=== PATIENT | male | born 1950 | race Caucasian/White ===

== ENCOUNTER 2024-03-25 20:55 | Inpatient (IN) | payer MEDICARE, OTHER ==
[~2024-03-25] VITALS: Ht 180.3 cm; Wt 87.1 kg
[2024-03-25 20:10] VITALS: BP 130/49; TEMP 98.2; O2SAT 94
[2024-03-25] MEDS ORDERED: ACET-3117 PO (21:53)
[2024-03-25] MEDS ORDERED: ACET650T10 PO (21:59)
[2024-03-25] MEDS ORDERED: ONDANSETRON HCL 4 MG TABLET PO PRN (22:15)
[2024-03-25] MEDS ORDERED: MIRALAX 17 GM POWD.PACK PO PRN (22:15)
[2024-03-25] MEDS ORDERED: diphenhydrAMINE 25 MG CAP PO PRN (22:15)
[2024-03-25] MEDS ORDERED: PHENOL/SODIUM PHENOLATE SPRAY 177 ML BOTTLE MM PRN (22:15)
[2024-03-25] MEDS ORDERED: ENOX40DI SUBCUT (23:03)
[2024-03-25] MEDS ORDERED: DIPH25CA83 PO (23:03)
[2024-03-25] MEDS ORDERED: CARV25TA PO (23:03)
[2024-03-25] MEDS ORDERED: CYCL5TAB PO (23:03)
[2024-03-25] MEDS ORDERED: CEFT2FRO2 IV (23:03)
[2024-03-25] MEDS ORDERED: HYDR-4209 PO (23:16)
[2024-03-25] MEDS ORDERED: POLY17PO4 PO (23:16)
[2024-03-25] MEDS ORDERED: SENN-18 PO (23:16)
[2024-03-25] MEDS ORDERED: NORT50CA5 PO (23:16)
[2024-03-25] MEDS ORDERED: FAMO-132 PO (23:16)
[2024-03-25] MEDS ORDERED: METH5TAB70 PO (23:16)
[2024-03-25] MEDS ORDERED: ONDA4TAB5 PO (23:16)
[2024-03-25] MEDS ORDERED: GABA-532 PO (23:16)
[2024-03-25] MEDS ORDERED: LORA0.5T48 PO (23:16)
[2024-03-25] MEDS ORDERED: QUET25TA PO (23:16)
[2024-03-25] MEDS ORDERED: PHEN177S31 PO (23:16)
[2024-03-25] MEDS ORDERED: IBUP-1953 PO (23:16)
[2024-03-25] MEDS ORDERED: ZOLP5TAB2 PO (23:16)
[2024-03-25] MEDS ORDERED: FENO160T PO (23:16)
[2024-03-25] MEDS: HYDROCODONE/APAP 10-325 MG TABLET PO PRN (23:42)
[2024-03-25] MEDS: ZOLPIDEM 5 MG TABLET PO PRN (23:56)
[2024-03-26] MEDS ORDERED: CEFTRIAXONE 1 G VIAL ONE (00:28)
[2024-03-26] MEDS: IBUPROFEN 400 MG TABLET PO PRN (02:31)
[2024-03-26] MEDS: HYDROCODONE/APAP 5-325MG TABLET PO PRN (02:32)
[2024-03-26] MEDS ORDERED: REMEDY ESSENTIAL ZINC PASTE 113 GM TOP PRN (05:15)
[2024-03-26 05:19] VITALS: BP 139/68; TEMP 98.2; O2SAT 92
[2024-03-26] MEDS ORDERED: HYDROCODONE/APAP 5-325MG TABLET PO PRN (07:45)
[2024-03-26] MEDS ORDERED: SENNOSIDES 1 TABLET PO SCH (07:45)
[2024-03-26] MEDS ORDERED: MIRALAX 17 GM POWD.PACK PO PRN (07:45)
[2024-03-26] MEDS ORDERED: CYCLOBENZAPRINE HCL 10 MG TABLET PO PRN (07:45)
[2024-03-26] MEDS ORDERED: LORAZEPAM 0.5 MG TABLET PO PRN (07:45)
[2024-03-26] MEDS: CARVEDILOL 25 MG TABLET PO SCH (08:13)
[2024-03-26] MEDS: ACETAMINOPHEN 325 MG TABLET PO SCH (08:14)
[2024-03-26] MEDS: FAMOTIDINE 20 MG TABLET PO SCH (08:19)
[2024-03-26] MEDS ORDERED: FAMOTIDINE 20 MG TABLET PO SCH (09:00)
[2024-03-26] MEDS: GABAPENTIN 100 MG CAPSULE PO SCH (09:00)
[2024-03-26] MEDS: FENOFIBRATE NANOCRYSTALLIZED 145 MG TABLET PO SCH (09:00)
[2024-03-26] MEDS ORDERED: ENOXAPARIN SODIUM 30 MG/0.3 ML DISP.SYRIN SUBCUT SCH (09:00)
[2024-03-26] MEDS ORDERED: CARVEDILOL 25 MG TABLET PO SCH (09:00)
[2024-03-26] MEDS ORDERED: IBUPROFEN 400 MG TABLET PO SCH (09:00)
[2024-03-26] MEDS ORDERED: FENOFIBRATE NANOCRYSTALLIZED 145 MG TABLET PO SCH (09:00)
[2024-03-26] MEDS ORDERED: GABAPENTIN 100 MG CAPSULE PO SCH (09:00)
[2024-03-26] MEDS: LORAZEPAM 0.5 MG TABLET PO PRN (10:49)
[2024-03-26] MEDS: CEFTRIAXONE 2 G in IV DEXTROSE 5% 50 ML IV SCH (11:36)
[2024-03-26] MEDS: ENOXAPARIN SODIUM 40 MG/0.4 ML DISP.SYRIN SQ SCH (11:38)
[2024-03-26] MEDS ORDERED: ASPI81TA31 PO (11:47)
[2024-03-26] MEDS ORDERED: BACL10TA PO (11:50)
[2024-03-26] MEDS ORDERED: FENO145T PO (11:54)
[2024-03-26] MEDS ORDERED: TADA5TAB2 PO (11:55)
[2024-03-26] MEDS ORDERED: LOSA1TAB42 PO (11:56)
[2024-03-26] MEDS ORDERED: FERR-56 PO (11:59)
[2024-03-26] MEDS ORDERED: METHIMAZOLE 5 MG TABLET PO SCH (12:00)
[2024-03-26] MEDS: METHIMAZOLE 5 MG TABLET PO SCH (12:00)
[2024-03-26] MEDS ORDERED: CHOL-35 PO (12:02)
[2024-03-26] MEDS ORDERED: DOCU100T2 PO (12:04)
[2024-03-26] MEDS ORDERED: TAMS-3 PO (12:05)
[2024-03-26] MEDS ORDERED: NEBI10TA2 PO (12:12)
[2024-03-26] MEDS ORDERED: ESCI-9 PO (12:13)
[2024-03-26] MEDS ORDERED: TRAZ-182 PO (12:21)
[2024-03-26] MEDS ORDERED: FESO8TAB PO (12:32)
[2024-03-26 15:46] VITALS: BP 137/64; TEMP 98.1; O2SAT 98
[2024-03-26] MEDS ORDERED: QUETIAPINE FUMARATE 25 MG TABLET PO SCH (18:00)
[2024-03-26 19:45] VITALS: BP 156/70; TEMP 98.1; O2SAT 94
[2024-03-26] MEDS ORDERED: NORTRIPTYLINE HCL 25 MG CAPSULE PO SCH (21:00)
[2024-03-26] MEDS: NORTRIPTYLINE HCL 25 MG CAPSULE PO SCH (21:06)
[2024-03-26] MEDS: QUETIAPINE FUMARATE 25 MG TABLET PO SCH (21:07)
[2024-03-27 05:48] VITALS: BP 134/59; TEMP 97.6; O2SAT 94
[2024-03-27] MEDS ORDERED: Medication Not On Formulary EA (Docusate Sodium 100 MG) PO SCH (15:15)
[2024-03-27] MEDS ORDERED: ESCITALOPRAM OXALATE 10 MG TABLET PO SCH (15:15)
[2024-03-27 15:30] VITALS: BP 125/57; TEMP 98.1; O2SAT 92
[2024-03-27] MEDS: LOSARTAN POTASSIUM 50 MG TABLET PO SCH (15:47)
[2024-03-27] MEDS: FERROUS SULFATE 325 MG TABEC PO SCH (15:47)
[2024-03-27] MEDS: ASPIRIN 81 MG TAB.CHEW PO SCH (15:47)
[2024-03-27] MEDS: HYDROCHLOROTHIAZIDE 12.5 MG CAPSULE PO SCH (15:47)
[2024-03-27 20:45] VITALS: BP 138/59; TEMP 97.5; O2SAT 95
[2024-03-27] MEDS: TAMSULOSIN HCL 0.4 MG CAP.SR.24H PO SCH (21:08)
[2024-03-27] MEDS: BACLOFEN 10 MG TABLET PO SCH (21:09)
[2024-03-27] MEDS: DOCUSATE SODIUM 100 MG CAPSULE PO SCH (21:09)
[2024-03-28 06:17] VITALS: BP 162/73; TEMP 98.1; O2SAT 92
[2024-03-28] MEDS: CHOLECALCIFEROL 1,000 UNIT TABLET PO SCH (08:09)
[2024-03-28] MEDS: ESCITALOPRAM OXALATE 10 MG TABLET PO SCH (08:09)
[2024-03-28 16:00] VITALS: BP 130/58; TEMP 98.2; O2SAT 93
[2024-03-28 20:00] VITALS: BP 145/51; TEMP 98.2; O2SAT 93
[2024-03-29 06:37] VITALS: BP 136/68; TEMP 98.7; O2SAT 93
[2024-03-29 12:00] VITALS: BP 118/71; TEMP 98.2; O2SAT 99
[2024-03-29 20:26] VITALS: BP 148/67; TEMP 98.4; O2SAT 96
[2024-03-30 04:20] VITALS: BP 137/65; TEMP 98.3; O2SAT 95
[2024-03-30 12:00] VITALS: BP 128/76; TEMP 98.6; O2SAT 96
[2024-03-30 16:00] VITALS: BP 139/72; TEMP 98.4; O2SAT 94
[2024-03-30 19:00] VITALS: BP 131/64; TEMP 98; O2SAT 94
[2024-03-31 06:28] VITALS: BP 131/71; TEMP 98.7; O2SAT 95
[2024-03-31 11:00] VITALS: BP 153/65; TEMP 98.4; O2SAT 97
[2024-03-31 14:59] VITALS: BP 119/66; TEMP 98.2; O2SAT 96
[2024-03-31 20:12] VITALS: BP 118/56; TEMP 98.6; O2SAT 96
[2024-04-01 05:40] VITALS: BP 146/66; TEMP 98.5; O2SAT 96
[2024-04-01 06:32] LABS: BASOPHILS % (AUTO) 0.6 % (0.0-2.0); EOSINOPHILS # (AUTO) 0.4 K/uL (0.0-0.7); EOSINOPHILS % (AUTO) 4.3 % (0.0-7.0); HEMATOCRIT 30.2 % (36.7-47.1); LYMPHOCYTES # (AUTO) 1.8 K/uL (0.8-4.8); LYMPHOCYTES % (AUTO) 21.4 % (20.5-51.5); MEAN CORPUSCULAR HGB CONC 33 g/dL (32.5-36.3); MEAN CORPUSCULAR VOLUME 84.8 fL (73.0-96.2); MONOCYTES # (AUTO) 0.7 K/uL (0.1-1.30); NEUTROPHILS # (AUTO) 5.5 K/uL (1.8-8.9); NEUTROPHILS % (AUTO) 65.7 % (38.5-71.5); PLATELET COUNT (AUTO) 465 K/uL (152-348); RED BLOOD CELL COUNT(AUTO) 3.56 MIL/uL (4.06-5.63); RED CELL DISTRIBUTION WIDTH 16.8 % (12.1-16.2); WHITE BLOOD COUNT (AUTO) 8.3 K/uL (3.6-10.2)
[2024-04-01 06:48] LABS: DIFFERENTIAL COMMENT 1
[2024-04-01 06:54] LABS: ALBUMIN 2.6 g/dL (3.4-5.0); BILIRUBIN,TOTAL 0.4 mg/dL (0.2-1.0); CALCIUM 9.5 mg/dL (8.5-10.1); CREATININE 1.1 mg/dL (0.6-1.3); MAGNESIUM 1.9 mg/dL (1.8-2.4); PHOSPHOROUS 3.6 mg/dL (2.5-4.9); POTASSIUM 3.9 mmol/L (3.5-5.1); TOTAL PROTEIN, SERUM 8.2 g/dL (6.4-8.2)
[2024-04-01 19:46] VITALS: BP 132/67; TEMP 97.8; O2SAT 96
[2024-04-01] MEDS: SENNOSIDES 1 TABLET PO PRN (19:55)
[2024-04-01] MEDS: CYCLOBENZAPRINE HCL 10 MG TABLET PO PRN (21:56)
[2024-04-02 04:00] VITALS: BP 129/60; TEMP 97.9; O2SAT 95
[2024-04-02 16:04] VITALS: BP 138/69; TEMP 97.8; O2SAT 97
[2024-04-02 20:00] VITALS: TEMP 98.1
[2024-04-03] VITALS: TEMP 98
[2024-04-03 04:00] VITALS: TEMP 96.7
[2024-04-03 06:13] VITALS: TEMP 98.7
[2024-04-03 07:15] LABS: BASOPHILS # (AUTO) 0.1 K/UL (0.0-0.2); BASOPHILS % (AUTO) 0.9 % (0.0-2.0); EOSINOPHILS # (AUTO) 0.3 K/uL (0.0-0.7); EOSINOPHILS % (AUTO) 3.7 % (0.0-7.0); HEMATOCRIT 31.2 % (36.7-47.1); HEMOGLOBIN 10.1 g/dL (12.5-16.3); LYMPHOCYTES # (AUTO) 2.1 K/uL (0.8-4.8); LYMPHOCYTES % (AUTO) 23.6 % (20.5-51.5); MEAN CORPUSCULAR HEMOGLOBIN 27.2 uug (23.8-33.4); MEAN CORPUSCULAR HGB CONC 32 g/dL (32.5-36.3); MEAN CORPUSCULAR VOLUME 84.2 fL (73.0-96.2); MONOCYTES # (AUTO) 0.8 K/uL (0.1-1.30); MONOCYTES % (AUTO) 8.9 % (0.0-11.0); NEUTROPHILS # (AUTO) 5.7 K/uL (1.8-8.9); NEUTROPHILS % (AUTO) 62.9 % (38.5-71.5); PLATELET COUNT (AUTO) 446 K/uL (152-348); RED BLOOD CELL COUNT(AUTO) 3.71 MIL/uL (4.06-5.63); RED CELL DISTRIBUTION WIDTH 16.7 % (12.1-16.2); WHITE BLOOD COUNT (AUTO) 9.1 K/uL (3.6-10.2)
[2024-04-03 07:21] LABS: DIFFERENTIAL COMMENT 1
[2024-04-03 07:33] LABS: ALBUMIN 2.7 g/dL (3.4-5.0); BILIRUBIN,TOTAL 0.3 mg/dL (0.2-1.0); CALCIUM 9.5 mg/dL (8.5-10.1); CREATININE 1.1 mg/dL (0.6-1.3); MAGNESIUM 1.9 mg/dL (1.8-2.4); PHOSPHOROUS 3.6 mg/dL (2.5-4.9); POTASSIUM 3.9 mmol/L (3.5-5.1); TOTAL PROTEIN, SERUM 8.1 g/dL (6.4-8.2)
[2024-04-03] MEDS: CEFTRIAXONE 2 G in IV DEXTROSE 5% 50 ML IV ONE (08:06)
[2024-04-03 15:33] VITALS: BP 114/54; TEMP 97.6; O2SAT 98
[2024-04-03 20:15] VITALS: BP 131/61; TEMP 98.1; O2SAT 94
[2024-04-04] MEDS ORDERED: OXYCODONE HCL 5 MG TABLET PO PRN ×2 (00:15→15:30)
[2024-04-04] MEDS: HYDROCODONE/APAP 10-325 MG TABLET PO ONE (02:44)
[2024-04-04 05:40] VITALS: BP 135/72; TEMP 98.2; O2SAT 94
[2024-04-04 10:10] VITALS: BP 130/73; TEMP 97; O2SAT 95
[2024-04-04 11:55] VITALS: BP 110/58; TEMP 98.9; O2SAT 96
[2024-04-04 13:00] VITALS: BP 129/70; TEMP 97.9; O2SAT 95
[2024-04-04 20:00] VITALS: BP 118/61; TEMP 97.7; O2SAT 96
[2024-04-05 06:00] VITALS: BP 129/74; TEMP 98.1; O2SAT 92
[2024-04-05 14:59] VITALS: BP 102/69; TEMP 98.6; O2SAT 96
[2024-04-05 20:03] VITALS: BP 136/73; TEMP 97.6; O2SAT 94
[2024-04-06 05:30] VITALS: BP 125/66; TEMP 98.4; O2SAT 96
[2024-04-06 15:30] VITALS: BP 119/70; TEMP 97.9; O2SAT 96
[2024-04-06 20:46] VITALS: BP 127/64; TEMP 98; O2SAT 95
[2024-04-07 06:00] VITALS: BP 128/76; TEMP 98.2; O2SAT 97
[2024-04-07 09:27] VITALS: BP 128/76
== END 2024-04-07 14:55 | disposition home health service (06) | DRG 949 ==
PROVIDERS: ADMIT Physical Medicine & Rehabilitation; ATTEND Physical Medicine & Rehabilitation Pain Medicine
DX: T84.54XD Infection and inflammatory reaction due to internal left knee prosthesis, subsequent encounter (principal); E87.1 Hypo-osmolality and hyponatremia; M00.062 Staphylococcal arthritis, left knee; N17.9 Acute kidney failure, unspecified; D50.9 Iron deficiency anemia, unspecified; E21.3 Hyperparathyroidism, unspecified; E78.5 Hyperlipidemia, unspecified; I10 Essential (primary) hypertension; I25.10 Atherosclerotic heart disease of native coronary artery without angina pectoris; I48.0 Paroxysmal atrial fibrillation; Z79.01 Long term (current) use of anticoagulants; B95.61 Methicillin susceptible Staphylococcus aureus infection as the cause of diseases classified elsewhere; R26.89 Other abnormalities of gait and mobility; R53.81 Other malaise; R53.1 Weakness; F32.A Depression, unspecified; F41.9 Anxiety disorder, unspecified; Z96.652 Presence of left artificial knee joint; F17.200 Nicotine dependence, unspecified, uncomplicated; E05.90 Thyrotoxicosis, unspecified without thyrotoxic crisis or storm; G47.00 Insomnia, unspecified; N40.0 Benign prostatic hyperplasia without lower urinary tract symptoms; Z88.5 Allergy status to narcotic agent
CPT/HCPCS: 36415; 83735; 84100; 85025; 93005; 97535-GO-CO; A4663; A6209; J0696; J1650; J7040